=== PATIENT | female | born 1970 | race Caucasian/White ===

== ENCOUNTER 2018-04-14 17:29 | Emergency (ER) | END 2018-04-14 21:35 | disposition home or self-care (01) ==

== ENCOUNTER 2018-07-22 10:15 | Emergency (ER) | END 2018-07-22 12:57 | disposition home or self-care (01) ==

== ENCOUNTER 2018-08-30 16:07 | Emergency (ER) | END 2018-08-30 18:00 | disposition home or self-care (01) ==

== ENCOUNTER 2019-06-28 20:14 | Emergency (ER) | payer MEDICAID ==
[~2019-06-28] VITALS: Ht 154.9 cm; Wt 68.6 kg
[~2019-06-28 20:14] MED LIST: HYDR-3980 PO; IBUP-1542 PO; NALO4SPR NS; ONDA4TAB14 PO
[2019-06-28] MEDS ORDERED: morphine 4 MG/ML VIAL IV STA ×2 (20:16→22:02)
[2019-06-28] MEDS ORDERED: ONDANSETRON 4 MG INJ IV STA (20:16)
[2019-06-28 20:20] VITALS: Ht 154.9 cm; Wt 68.6 kg
[2019-06-28 22:34] VITALS: BP 123/86; PULSE 94; RESP 20
== END 2019-06-28 22:34 | disposition home or self-care (01) ==
LOC: E/R 20:14
DX: K80.50 Calculus of bile duct without cholangitis or cholecystitis without obstruction (principal); F17.210 Nicotine dependence, cigarettes, uncomplicated
CPT/HCPCS: 36415; 76705; 80053; 81001; 81025; 83690; 85025; 96374; 96375; 96376; J2270; J2405; Z7502

== ENCOUNTER 2019-08-19 14:26 | Emergency (ER) | payer MEDICAID ==
[~2019-08-19] VITALS: Ht 152.4 cm; Wt 80.0 kg
[~2019-08-19 14:26] MED LIST changes: +HYDR-4011 PO; +NAPR-985 PO
[2019-08-19 14:29] VITALS: Ht 152.4 cm; Wt 80.0 kg
[2019-08-19] MEDS ORDERED: HYDROmorphONE 1 MG/ML SYG IV STA (14:37)
[2019-08-19] MEDS ORDERED: ONDANSETRON 4 MG INJ IV STA ×2 (14:37→19:06)
[2019-08-19] MEDS ORDERED: morphine 4 MG/ML VIAL IV STA (19:00)
[2019-08-19] MEDS ORDERED: KETOROLAC 15 MG INJ IV STA (19:00)
[2019-08-19 20:16] VITALS: BP 124/85; PULSE 66; RESP 16
== END 2019-08-19 20:17 | disposition home or self-care (01) ==
LOC: E/R 14:26
DX: K80.50 Calculus of bile duct without cholangitis or cholecystitis without obstruction (principal); Z87.891 Personal history of nicotine dependence
CPT/HCPCS: 36415; 76705; 80053; 81001; 81025; 83690; 85025; 96374; 96375; 96376; J1170; J1885; J2270; J2405; Z7502